=== PATIENT | female | born 1995 | race Caucasian/White ===

== ENCOUNTER 2020-11-08 11:32 | Emergency (ER) | payer BC ==
[~2020-11-08] VITALS: Ht 160 cm; Wt 63.5 kg
--- NOTE | 2020-11-08 11:35 | NUR ---
PT TO BED 4 FOR EVALUATION.
[2020-11-08 11:40] VITALS: BP_SYST 110
--- NOTE | 2020-11-08 11:40 | NUR ---
PT AAO AND WAS BIB AMBULANCE FOR A SUDDEN ONSET OF LLQ PAIN. PT REPORTS NAUSEA AND RATES PAIN 7/10 ON PAIN SCALE. PT DESCRIBES PAIN SHARP WITH INTERMITTENT CRAMPING. PT DENIES ANY MEDICAL HISTORY. V/S STABLE.
--- NOTE | 2020-11-08 12:45 | NUR ---
# 20 gauge angiocath placed to RIGHT ARM. Use of asceptic technique. Opsite placed over site. Blood return noted. Blood for lab drawn from site. Flushed with 10 cc of normal saline. No evidence of infiltration noted. Patient tolerated well.
--- NOTE | 2020-11-08 12:45 | NUR ---
DR. GREY AT BEDSIDE TO ASSESS.
--- NOTE | 2020-11-08 13:10 | NUR ---
BLOOD DRAWN AND SENT PER LAB.
[2020-11-08 13:17] LABS: BASOPHILS # (AUTO) 0.1 K/uL (0.0-0.2); BASOPHILS % (AUTO) 0.5 % (0.0-2.0); EOSINOPHILS # (AUTO) 0.1 K/uL (0.0-0.4); HEMATOCRIT 40.3 % (36-48); HEMOGLOBIN 13.5 g/dL (12.0-16.0); LYMPHOCYTES # (AUTO) 1.9 K/uL (1.0-5.5); LYMPHOCYTES % (AUTO) 19.5 % (20.5-51.5); MEAN CORPUSCULAR HEMOGLOBIN 28 pg (27-31); MEAN CORPUSCULAR HGB CONC 34 % (32-36); MEAN CORPUSCULAR VOLUME 83 fL (79.0-98.0); MONOCYTES # (AUTO) 0.4 K/uL (0.0-1.0); MONOCYTES % (AUTO) 4.2 % (1.7-9.3); NEUTROPHILS # (AUTO) 7.2 K/uL (1.8-7.7); NEUTROPHILS % (AUTO) 74.8 % (40.0-70.0); PLATELET COUNT (AUTO) 406 K/uL (130-430); RED BLOOD CELL COUNT(AUTO) 4.83 MIL/uL (4.2-6.2); RED CELL DISTRIBUTION WIDTH 15.7 % (9.0-15.0); WHITE BLOOD COUNT (AUTO) 9.6 K/uL (4.8-10.8)
[2020-11-08] MEDS: KETOROLAC TROMETHAMINE 30 MG VIAL IVP ONE (13:27)
[2020-11-08] MEDS: NACL 0.9% 1,000 ML IV ONE (13:28)
[2020-11-08 13:34] LABS: CALCIUM 8.7 mg/dL (8.4-11.0); CREATININE 0.6 mg/dL (0.55-1.30); POTASSIUM 4.2 mmol/L (3.5-5.1)
[2020-11-08 13:38] LABS: ALBUMIN 3.4 g/dL (3.4-4.8); TOTAL BILIRUBIN 0.4 mg/dL (0.0-1.0)
[2020-11-08 14:00] LABS: BILIRUBIN,URINE NEGATIVE (NEGATIVE); CLARITY/URINE TURBID (CLEAR); COLOR,URINE YELLOW (YELLOW); GLUCOSE,URINE NEGATIVE (NEGATIVE); KETONES,URINE NEGATIVE (NEGATIVE); LEUKOCYTE ESTERASE ,URINE TRACE (NEGATIVE); NITRITE, URINE NEGATIVE (NEGATIVE); PROTEIN URINE NEGATIVE (NEGATIVE); UROBILINOGEN,URINE 0.2 (0.2-1.0)
--- NOTE | 2020-11-08 14:00 | NUR ---
PT TO RADIOLOGY VIA WHEELCHAIR.
[2020-11-08 14:05] LABS: BLOOD, URINE TRACE (NEGATIVE)
--- NOTE | 2020-11-08 14:12 | NUR ---
PT BACK FROM RADIOLOGY.
[2020-11-08 14:30] LABS: RBC,URINE 0-3 /HPF (0-3); WBC,URINE 0-3 /HPF (0-3)
[2020-11-08 14:31] LABS: BACTERIA,URINE FEW /HPF (None Seen); MUCUS,URINE 1+ /LPF (None Seen)
--- NOTE | 2020-11-08 14:59 | NUR ---
PT TO U/S BY WHEELCHAIR.
--- NOTE | 2020-11-08 15:20 | NUR ---
Pt back to t[facility] awaiting results.
--- NOTE | 2020-11-08 16:00 | NUR ---
STATUS UPDATE GIVEN TO FAMILY VIA TELEPHONE
[2020-11-08 17:09] VITALS: BP_SYST 110
== END 2020-11-08 17:09 | disposition home or self-care (01) ==
LOC: SED 11:32
DX: Z88.1 Allergy status to other antibiotic agents (principal); R10.84 Generalized abdominal pain; R11.0 Nausea
CPT/HCPCS: 36415; 74021; 76856; 80053; 81000; 83690; 85025; 96361; 96374; 99285; J1885; J7030